=== PATIENT | male | born 1935 | race Hispanic/Latino ===

== ENCOUNTER 2018-04-08 20:20 | Emergency (ER) | payer MEDICARE, BC ==
[2018-04-08 20:34] VITALS: BMI 25.8
--- NOTE | 2018-04-08 21:20 | ED PDOC ---
Arrival/HPI <PolloHerberth - Last Filed: 04/08/18 21:48> <Bonnie Velez - Last Filed: 04/09/18 01:08> - General Chief Complaint: Abdominal Pain Time Seen by Provider: 04/08/18 20:35 - History of Present Illness Narrative History of Present Illness (Text): 82 year old with a past medical history of hypertension, BPH, GERD, nephrolithiasis, hyperlipidemia, dementia, and vertigo presents for LUQ pain underneath his ribs that started this morning after he fell on the sidewalk on his ribs. Patient reports he was running across the street and fell on the sidewalk. Patient reports pain is worse with deep inspiration. Patient took tylenol for the pain but did not have relief from symptoms. He subsequently went home and fell back on the floor, as well. He denies back pain. Though he denies any head trauma from either event, daughter is unsure if that is true because of his dementia. His daughter reported that the patient has been falling more often than usual and has fallen at least 4 times this month. (Bonnie Velez) Past Medical History - Provider Review Nursing Documentation Reviewed: Yes - Infectious Disease Hx of Infectious Diseases: None - Cardiac Hx Cardiac Disorders: Yes Hx Hypertension: Yes - Pulmonary Hx Respiratory Disorders: No - Neurological Hx Neurological Disorder: No Hx Paralysis: No - HEENT Hx HEENT Disorder: No - Renal Hx Renal Disorder: Yes Hx Kidney Stones: Yes - Endocrine/Metabolic Hx Endocrine Disorders: No - Hematological/Oncological Hx Blood Disorders: No - Integumentary Hx Dermatological Disorder: No - Musculoskeletal/Rheumatological Hx Musculoskeletal Disorders: No - Gastrointestinal Hx Gastrointestinal Disorders: Yes Hx Gastroesophageal Reflux: Yes - Genitourinary/Gynecological Hx Genitourinary Disorders: Yes Hx Prostate Problems: Yes - Psychiatric Hx Psychophysiologic Disorder: No Hx Substance Use: No - Surgical History Other/Comment: Prostate surgery with Dr Osborn 04/09/2016 - Anesthesia Hx Anesthesia: Yes Hx Anesthesia Reactions: No Hx Malignant Hyperthermia: No - Suicidal Assessment Feels Threatened In Home Enviroment: No <Bonnie Velez - Last Filed: 04/09/18 01:08> Family/Social History - Physician Review Nursing Documentation Reviewed: Yes Family/Social History: Unknown Family HX Smoking Status: Former Smoker Hx Alcohol Use: No Hx Substance Use: No <Bonnie Velez - Last Filed: 04/09/18 01:08> Allergies/Home Meds <Herberth Abad - Last Filed: 04/08/18 21:48> <Bonnie Velez - Last Filed: 04/09/18 01:08> Allergies/Adverse Reactions: Allergies codeine Adverse Reaction (Severe, Verified 04/08/18 20:34) DIZZINESS doxycycline Adverse Reaction (Severe, Verified 04/08/18 20:34) STOMACH PAIN indomethacin Adverse Reaction (Severe, Verified 04/08/18 20:34) STOMACH PAIN Penicillins Adverse Reaction (Severe, Verified 04/08/18 20:34) VOMITING Home Medications: Home Meds Medication Instructions Recorded Confirmed Oxybutynin Chloride [Oxybutynin] 10 mg PO DAILY 06/24/15 08/17/16 Tamsulosin [Flomax] 0.4 mg PO DAILY 08/05/15 08/17/16 Allopurinol [Zyloprim] 100 mg PO DAILY 01/25/16 08/17/16 Fenofibrate [Tricor] 145 mg PO DAILY 01/25/16 08/17/16 Folic Acid [Folic Acid] 1 mg PO DAILY 01/25/16 08/17/16 Pantoprazole [Protonix EC Tab] 40 mg PO DAILY 01/25/16 08/17/16 Aspirin [Ecotrin] 81 mg PO DAILY 03/30/16 08/17/16 amLODIPine [Norvasc] 5 mg PO QAM 03/30/16 08/17/16 Memantine HCl [Namenda Xr] 1 tab PO DAILY 08/17/16 08/17/16 Review of Systems - Physician Review All systems were reviewed & negative as marked: Yes - Review of Systems Constitutional: Normal Eyes: Normal ENT: Normal Respiratory: SOB (mild shortness of breath due to pain below his left sided ribs ) Cardiovascular: Normal Gastrointestinal: Abdominal Pain (LUQ pain) Genitourinary Male: Normal. absent: Dysuria, Frequency, Hematuria Musculoskeletal: Normal. absent: Back Pain Skin: Normal Neurological: Normal <Bonnie Velez - Last Filed: 04/09/18 01:08> Physical Exam <Herberth Abad - Last Filed: 04/08/18 21:48> Vital Signs Reviewed: Yes Temperature: Afebrile Blood Pressure: Hypertensive Pulse: Regular Respiratory Rate: Normal Appearance: Positive for: Well-Appearing Pain Distress: Mild Mental Status: Positive for: Alert and Oriented X 3 - Systems Exam Head: Present: Atraumatic, Normocephalic Pupils: Present: PERRL Extroacular Muscles: Present: EOMI Conjunctiva: Present: Normal Nose (External): Present: Atraumatic Respiratory/Chest: Present: Clear to Auscultation Cardiovascular: Present: Regular Rate and Rhythm, Normal S1, S2. No: Murmurs Abdomen: Present: Normal Bowel Sounds. No: Tenderness, Distention Back: Present: Normal Inspection. No: CVA Tenderness, Midline Tenderness, Paraspinal Tenderness Upper Extremity: Present: Normal Inspection, Normal ROM, NORMAL PULSES Lower Extremity: Present: Normal Inspection, NORMAL PULSES, Normal ROM Neurological: Present: GCS=15, CN II-XII Intact, Speech Normal, Motor Func Grossly Intact Skin: Present: Warm, Dry, Normal Color Psychiatric: Present: Alert, Oriented x 3 <Bonnie Velez - Last Filed: 04/09/18 01:08> Vital Signs Temp Pulse Resp BP Pulse Ox 04/08/18 20:34 98.6 F 69 17 146/82 96 Medical Decision Making <Herberth Abad - Last Filed: 04/08/18 21:48> - Lab Interpretations I have reviewed the lab results: Yes - RAD Interpretation Mold Technician: ED Physician, Radiologist <Bonnie Velez - Last Filed: 04/09/18 01:08> ED Course and Treatment: 04/08/18 21:48 Jeramy Anderson is an 82 year old male who presents to the emergency department with a complaint of left upper quadrant abdominal pain since this morning s/p a fall. In agreement with resident note which contains more details about the patient. Patient was seen and evaluated with resident. Came up with plan and treatment together. (Herberth Abad) Impression: 82 year old with a past medical history of hypertension, BPH, GERD, nephrolithiasis, hyperlipidemia, dementia, and vertigo presents for LUQ pain underneath his ribs that started this morning after he fell on the sidewalk on his ribs. Assessment: musculoskeletal pain Rule out splenic rupture Doubt pneumothorax Plan: CBC and CMP to evaluate for anemia and electrolyte imbalances. Chest X ray to rule out pneumothorax. Head CT to rule out head trauma and intracranial bleed. Abdominal CT with contrast to rule out splenic rupture or other abdominal pathology. 04/08/18 22:42 CBC, CMP unremarkable so can rule out anemia and electrolyte imbalances. 04/09/18 00:[address]: 3.6 cm diameter infrarenal fusiform abdominal aortic aneurysm. No acute intra-abdominal pathology or traumatic injury. Normal spleen. Head CT: No acute findings. Chest X ray: No acute findings. No acute abdominal or head CT findings. Patient has AAA. Patient is aware of this and this is being followed by PCP. Patient can be discharged with follow up with PCP. (Bonnie Velez) - Lab Interpretations Lab Results: 04/08/18 21:40 04/08/18 21:40 Lab Results 04/08/18 21:40: Sodium 142, Potassium 4.0, Chloride 105, Carbon Dioxide 23, Anion Gap 19, BUN 22 H, Creatinine 1.3, Est GFR ( Amer) > 60, Est GFR ( Non-Af Amer) 53, Random Glucose 100, Calcium 9.3, Total Bilirubin 0.9, AST 24, ALT 37, Alkaline Phosphatase 66, Total Protein 7.3, Albumin 4.3, Globulin 3.0, Albumin/Globulin Ratio 1.4 04/08/18 21:40: WBC 9.1, RBC 5.21, Hgb 14.5, Hct 42.1, MCV 80.8, MCH 27.8, MCHC 34.4, RDW 13.4, Plt Count 145, MPV 10.8, Gran % 61.5, Lymph % (Auto) 28.4, Routt % (Auto) 7.8 H, Eos % (Auto) 2.0, Baso % (Auto) 0.3, Gran # 5.60, Lymph # (Auto ) 2.6, Routt # (Auto) 0.7 H, Eos # (Auto) 0.2, Baso # (Auto) 0.03 - RAD Interpretation Radiology Orders: 04/08/18 20:56 ABD & PELVIS PO CONTRAST ONLY [CT] Stat 04/08/18 20:57 HEAD W/O CONTRAST [CT] Stat CHEST PORTABLE [RAD] Stat - Scribe Statement The provider has reviewed the documentation as recorded by the Scribe <Herberth Abad - Last Filed: 04/08/18 21:48> - PA / BOWLING BALL GRADER / Resident Statement EDWARDO has reviewed & agrees with the documentation as recorded. EDWARDO has examined the patient and agrees with the treatment plan. <Bonnie Velez - Last Filed: 04/09/18 01:08> - Scribe Statement Linsey [place] Provider Scribe Attestation: All medical record entries made by the Scribe were at my direction and personally dictated by me. I have reviewed the chart and agree that the record accurately reflects my personal performance of the history, physical exam, medical decision making, and the department course for this patient. I have also personally directed, reviewed, and agree with the discharge instructions and disposition. (PolloHerberth) Disposition/Present on Arrival <PolloHerberth murrell - Last Filed: 04/08/18 21:48> - Present on Arrival Any Indicators Present on Arrival: No History of DVT/PE: No History of Uncontrolled Diabetes: No Urinary Catheter: No History of Decub. Ulcer: No History Surgical Site Infection Following: None - Disposition Have Diagnosis and Disposition been Completed?: Yes Disposition Time: 01:02 Patient Plan: Discharge <YuegabiBonnie - Last Filed: 04/09/18 01:08> - Disposition Diagnosis: Fall Disposition: HOME/ ROUTINE Condition: STABLE Additional Instructions: JERAMY ANDERSON, thank you for letting us take care of you today. Your provider was Herberth Abad MD and Bonnie Velez DO and you were treated for left upper quadrant pain. The emergency medical care you received today was directed at your acute symptoms. Abdominal CT, Head CT, and Chest X ray did not find any acute findings. Abdominal aortic aneurysm was found on abdominal CT which you are following up with your PCP. Return to the Emergency Department if your symptoms worsen, do not improve, or if you have any other problems. Follow up with PCP, Dr. Gamez, for appointment regarding your visit at the Emergency Department. Bring any paperwork you were given at discharge with you along with any medications you are taking to your follow up visit. Our treatment cannot replace ongoing medical care by a primary care provider outside of the emergency department. Thank you for allowing the [facility] team to be part of your care today. Referrals: christina gamez [Other] - Follow up with primary Forms: [employer] (Greek)
[2018-04-08 22:23] LABS: BASO # 0.03 K/mm3 (0.0-2.0); BASO % 0.3 % (0.0-3.0); EOS # 0.2 (0.0-0.7); GRAN # 5.6 (1.4-6.5); GRAN % 61.5 % (50.0-68.0); HEMOGLOBIN 14.5 g/dL (14.0-18.0); LYMPH # 2.6 (1.2-3.4); LYMPH % 28.4 % (22.0-35.0); MEAN CELL VOLUME 80.8 fl (80.0-105.0); MEAN CORPUSCULAR HEMOGLOBIN 27.8 pg (25.0-35.0); MEAN CORPUSCULAR HGB CONC 34.4 g/dl (31.0-37.0); MEAN PLATELET VOLUME 10.8 fl (7.0-11.0); MONO # 0.7 (0.1-0.6); MONO % 7.8 % (1.0-6.0); RBC 5.21 10^6/uL (3.5-6.1); RED CELL DISTRIBUTION WIDTH 13.4 % (11.5-14.5); WHITE BLOOD COUNT 9.1 10^3/ul (4.5-11.0)
[2018-04-08 22:33] LABS: ALB/GLOB RATIO 1.4 (1.1-1.8); ALBUMIN 4.3 g/dL (3.0-4.8); ALT/SGPT 37 U/L (7-56); AST/SGOT 24 U/L (17-59); BLOOD UREA NITROGEN 22 mg/dL (7-21); CALCIUM 9.3 mg/dL (8.4-10.5); GFR AFRICAN-AMERICAN > 60; GFR NON-AFRICAN AMERICAN 53
[2018-04-09 01:26] VITALS: RESP 16
[2018-04-09 01:27] VITALS: BP 140/80; PULSE 69; O2SAT 97
[2018-04-09 01:29] VITALS: TEMP 98.1
--- NOTE | 2018-04-09 08:43 | CT ---
Date of service: 04/08/2018 PROCEDURE: CT HEAD WITHOUT CONTRAST. HISTORY: rule out trauma COMPARISON: 08/17/2016. TECHNIQUE: Axial computed tomography images were obtained through the head/brain without intravenous contrast. Coronal and sagittal reconstructed images. Radiation dose: Total exam DLP = 1030.17 mGy-cm. This CT exam was performed using one or more of the following dose reduction techniques: Automated exposure control, adjustment of the mA and/or kV according to patient size, and/or use of iterative reconstruction technique. FINDINGS: HEMORRHAGE: No intracranial hemorrhage. BRAIN: No mass effect or edema. Age related senescent changes. VENTRICLES: Unremarkable. No hydrocephalus. CALVARIUM: Unremarkable. PARANASAL SINUSES: Unremarkable as visualized. No significant inflammatory changes. MASTOID AIR CELLS: Unremarkable as visualized. No inflammatory changes. OTHER FINDINGS: None. IMPRESSION: No acute intracranial abnormalities. No significant findings to account for the clinical presentation. No significant interval change compared to the prior examination(s). Concordant results (preliminary interpretation) provided by [employer]. Procedure Completed: 23:44. Preliminary ([facility]) Report: Dictated and Authenticated: 00:32. Final Interpretation: 08:41. April 09, 2018.
--- NOTE | 2018-04-09 09:45 | RAD ---
Date of service: 04/08/2018 HISTORY: r/o infiltrate COMPARISON: 10/18/2015 FINDINGS: LUNGS: No active pulmonary disease. PLEURA: No significant pleural effusion identified, no pneumothorax apparent. CARDIOVASCULAR: Normal. OSSEOUS STRUCTURES: No significant abnormalities. VISUALIZED UPPER ABDOMEN: Normal. OTHER FINDINGS: None. IMPRESSION: No active disease.
--- NOTE | 2018-04-09 11:02 | CT ---
Date of service: 04/08/2018 PROCEDURE: CT Abdomen and Pelvis with contrast HISTORY: rule out splenic injury COMPARISON: None. TECHNIQUE: Oral contrast only. Radiation dose: Total exam DLP = 435.54 mGy-cm. This CT exam was performed using one or more of the following dose reduction techniques: Automated exposure control, adjustment of the mA and/or kV according to patient size, and/or use of iterative reconstruction technique. FINDINGS: LOWER THORAX: Unremarkable. LIVER: Unremarkable. No gross lesion or ductal dilatation. GALLBLADDER AND BILE DUCTS: Unremarkable. PANCREAS: Unremarkable. No gross lesion or ductal dilatation. SPLEEN: Unremarkable. ADRENALS: Unremarkable. No mass. KIDNEYS AND URETERS: Unremarkable. No hydronephrosis. No solid mass. VASCULATURE: Fusiform dilatation of the infrarenal abdominal aorta 3.8 x 3 cm. The aneurysm does not extend to the iliac arteries. BOWEL: Unremarkable. No obstruction. No gross mural thickening. APPENDIX: Normal appendix. PERITONEUM: Unremarkable. No free fluid. No free air. LYMPH NODES: Unremarkable. No enlarged lymph nodes. BLADDER: Unremarkable. REPRODUCTIVE: Unremarkable. BONES: No acute fracture. OTHER FINDINGS: None. IMPRESSION: No acute findings related to/accounting for the clinical presentation. Infrarenal abdominal aortic aneurysm maximum diameters 3 x 3.8 cm. Limitations of the current examination: Absence of intravenous contrast in the setting of trauma where splenic injury/ laceration is suspected Concordant results (preliminary interpretation) provided by [employer]. Procedure Completed: 23:41 Preliminary ([facility]) Report: Dictated and Authenticated: 00:43. Final Interpretation: 11:00. April 09, 2018.
== END 2018-04-09 01:25 | disposition home or self-care (01) ==
LOC: ED 20:20
DX: R10.12 Left upper quadrant pain (principal); W18.30XA Fall on same level, unspecified, initial encounter; Y93.02 Activity, running; Y92.480 Sidewalk as the place of occurrence of the external cause; E78.5 Hyperlipidemia, unspecified; I10 Essential (primary) hypertension; N40.0 Benign prostatic hyperplasia without lower urinary tract symptoms; F03.90 Unspecified dementia, unspecified severity, without behavioral disturbance, psychotic disturbance, mood disturbance, and anxiety; Z87.891 Personal history of nicotine dependence

== ENCOUNTER 2018-04-10 11:49 | Emergency (ER) | payer MEDICARE, BC ==
[2018-04-10] MEDS ORDERED: Oxycodone/Acetaminophen 5/325 mg Tab PO STA (12:37)
[2018-04-10 12:39] VITALS: BMI 27.6
--- NOTE | 2018-04-10 12:42 | ED PDOC ---
Arrival/HPI - General Chief Complaint: Back Pain Time Seen by Provider: 04/10/18 12:31 Historian: Patient - History of Present Illness Narrative History of Present Illness (Text): 04/10/18 12:38 An 82 year old male, whose past medical history includes hypertension, BPH, GERD , nephrolithiasis, hyperlipidemia, dementia, and vertigo, presents to the emergency room complaining of persistent left sided rib pain. Patient was seen on 04/08 s/p mechanical fall for which he had a Head CT, Abdomen/Pelvis CT, and Chest X-ray that were negative. Patient was discharged home. He presents today complaining of persistent pain. He notes that he has been taking Tylenol with no relief of his symptoms. The patient denies fevers, chills, headache, dizziness, sore throat, cough, shortness of breath, dyspnea on exertion, abdominal pain, nausea, vomiting, diarrhea, neck/back pain, urinary/bowel changes or any other complaint. PMD: Dr. Yesi Gamez ([facility]) Time/Duration: Other (2 Days) Symptom Onset: Sudden Symptom Course: Worsening Activities at Onset: Rest, Light Context: Home Past Medical History - Provider Review Nursing Documentation Reviewed: Yes - Infectious Disease Hx of Infectious Diseases: None - Cardiac Hx Cardiac Disorders: Yes Hx Hypertension: Yes - Pulmonary Hx Respiratory Disorders: No - Neurological Hx Neurological Disorder: No Hx Paralysis: No - HEENT Hx HEENT Disorder: No - Renal Hx Renal Disorder: Yes Hx Kidney Stones: Yes - Endocrine/Metabolic Hx Endocrine Disorders: No - Hematological/Oncological Hx Blood Disorders: No - Integumentary Hx Dermatological Disorder: No - Musculoskeletal/Rheumatological Hx Musculoskeletal Disorders: Yes Hx Falls: Yes - Gastrointestinal Hx Gastrointestinal Disorders: Yes Hx Gastroesophageal Reflux: Yes - Genitourinary/Gynecological Hx Genitourinary Disorders: Yes Hx Prostate Problems: Yes - Psychiatric Hx Psychophysiologic Disorder: No Hx Substance Use: No - Surgical History Other/Comment: Prostate surgery with Dr Osborn 04/09/2016 - Anesthesia Hx Anesthesia: Yes Hx Anesthesia Reactions: No Hx Malignant Hyperthermia: No - Suicidal Assessment Feels Threatened In Home Enviroment: No Family/Social History - Physician Review Nursing Documentation Reviewed: Yes Family/Social History: No Known Family HX Smoking Status: Former Smoker Hx Alcohol Use: No Hx Substance Use: No Allergies/Home Meds Allergies/Adverse Reactions: Allergies codeine Adverse Reaction (Severe, Verified 04/10/18 12:33) DIZZINESS doxycycline Adverse Reaction (Severe, Verified 04/10/18 12:33) STOMACH PAIN indomethacin Adverse Reaction (Severe, Verified 04/10/18 12:33) STOMACH PAIN Penicillins Adverse Reaction (Severe, Verified 04/10/18 12:33) VOMITING Home Medications: Home Meds Medication Instructions Recorded Confirmed Oxybutynin Chloride [Oxybutynin] 10 mg PO DAILY 06/24/15 04/10/18 Tamsulosin [Flomax] 0.4 mg PO DAILY 08/05/15 04/10/18 Allopurinol [Zyloprim] 100 mg PO DAILY 01/25/16 04/10/18 Fenofibrate [Tricor] 145 mg PO DAILY 01/25/16 04/10/18 Folic Acid [Folic Acid] 1 mg PO DAILY 01/25/16 04/10/18 Pantoprazole [Protonix EC Tab] 40 mg PO DAILY 01/25/16 04/10/18 Aspirin [Ecotrin] 81 mg PO DAILY 03/30/16 04/10/18 amLODIPine [Norvasc] 5 mg PO QAM 03/30/16 04/10/18 Memantine HCl [Namenda Xr] 1 tab PO DAILY 08/17/16 04/10/18 Review of Systems - Physician Review All systems were reviewed & negative as marked: Yes - Review of Systems Constitutional: absent: Fevers, Night Sweats Respiratory: absent: SOB, Cough Cardiovascular: absent: Chest Pain, WALKER Gastrointestinal: absent: Abdominal Pain, Stool Changes, Diarrhea, Nausea, Vomiting Genitourinary Male: absent: Urinary Output Changes Musculoskeletal: Other (Persistent left sided rib pain. ). absent: Back Pain, Neck Pain Neurological: absent: Headache, Dizziness Physical Exam Vital Signs Reviewed: Yes Vital Signs Temp Pulse Resp BP Pulse Ox 04/10/18 12:34 97.9 F 76 18 138/70 95 Temperature: Afebrile Blood Pressure: Normal Pulse: Regular Respiratory Rate: Normal Appearance: Positive for: Well-Appearing, Non-Toxic, Comfortable Pain Distress: None Mental Status: Positive for: Alert and Oriented X 3 - Systems Exam Head: Present: Atraumatic, Normocephalic Pupils: Present: PERRL Extroacular Muscles: Present: EOMI Conjunctiva: Present: Normal Mouth: Present: Moist Mucous Membranes Neck: Present: Normal Range of Motion Respiratory/Chest: Present: Clear to Auscultation, Good Air Exchange, Tender to Palpation (Left- sided rib tenderness. ). No: Respiratory Distress, Accessory Muscle Use Cardiovascular: Present: Regular Rate and Rhythm, Normal S1, S2. No: Murmurs Abdomen: No: Tenderness, Distention, Peritoneal Signs Back: Present: Normal Inspection Upper Extremity: Present: Normal Inspection. No: Cyanosis, Edema Lower Extremity: Present: Normal Inspection. No: Edema Neurological: Present: GCS=15, CN II-XII Intact, Speech Normal Skin: Present: Warm, Dry, Normal Color. No: Rashes Psychiatric: Present: Alert, Oriented x 3, Normal Insight, Normal Concentration Medical Decision Making ED Course and Treatment: 04/10/18 12:44 Impression: An 82 year old male presents to the emergency room complaining of persistent left sided rib pain s/p fall 2 days ago. Plan: -- Chest CT -- Percocet -- Reassess and disposition Prior Visits: Notes and results from previous visits were reviewed. On 04/08/18 patient was seen in the emergency room for left-sided pain s/p mechanical fall. Patient was discharged home. Progress Notes: PROCEDURE: CT Chest without contrast Dictator : Cayetano Iverson MD Report Date : 04/10/2018 13:37:07 IMPRESSION: No acute findings 04/10/18 13:43 On reevaluation the patient feels better and is in no acute distress. His son reports that patient is not taking pain medication. Paitent instructed on the importance of taking pain medication. Given incentive spirometer and instructed to follow-up with PMD. I have discussed the results and plan with the patient, who expresses understanding. Patient given the opportunity to ask question, all questions were answered and there is agreement with the plan to discharge the patient home. Patient is stable for discharge. Patient was instructed to follow up with physician/clinic in 1-2 days or return if symptoms persist/worsen or new concerning symptoms arise. 04/10/18 13:59 - RAD Interpretation Radiology Orders: 04/10/18 12:37 CHEST W/O CONTRAST [CT] Stat - Medication Orders Current Medication Orders: Discontinued Medications Oxycodone/Acetaminophen (Percocet 5/325 Mg Tab) 1 tab PO STAT STA Stop: 04/10/18 12:38 Last Admin: 04/10/18 13:03 Dose: 1 tab MAR Pain Assessment Document 04/10/18 13:03 SF (Rec: 04/10/18 13:03 [id number]) Pain Reassessment Is this a pain reassessment? Yes Sleep Is patient sleeping during reassessment? No Presence of Pain Presence of Pain Yes - Scribe Statement The provider has reviewed the documentation as recorded by the [place] Provider Scribe Attestation: All medical record entries made by the Scribe were at my direction and personally dictated by me. I have reviewed the chart and agree that the record accurately reflects my personal performance of the history, physical exam, medical decision making, and the department course for this patient. I have also personally directed, reviewed, and agree with the discharge instructions and disposition. Disposition/Present on Arrival - Present on Arrival Any Indicators Present on Arrival: No History of DVT/PE: No History of Uncontrolled Diabetes: No Urinary Catheter: No History of Decub. Ulcer: No History Surgical Site Infection Following: None - Disposition Have Diagnosis and Disposition been Completed?: Yes Diagnosis: Rib contusion Disposition: HOME/ ROUTINE Disposition Time: 13:43 Patient Plan: Discharge Patient Problems: Current Active Problems Problem Status Onset Rib contusion Acute Condition: GOOD Discharge Instructions (ExitCare): How to Use an Incentive Spirometer, Contusion (DC), Bruised Rib (DC) Additional Instructions: Take percocet for severe pain. Tylenol for moderate pain. Use incentive spirometer. Return to ED if condition worsens. Follow-up with PMD within 2 days Prescriptions: oxyCODONE/Acetaminophen [Percocet 5/325 mg Tab] 1 tab PO Q6 PRN #10 tab PRN Reason: Pain, Severe (8-10) Forms: [employer] (Polish)
--- NOTE | 2018-04-10 13:39 | CT ---
Date of service: 04/10/2018 PROCEDURE: CT Chest without contrast HISTORY: persistent L sided rib pain after fall COMPARISON: None. TECHNIQUE: Contiguous axial images were obtained through the chest without intravenous contrast enhancement. Sagittal and coronal reconstructions were performed. Radiation dose (DLP): 697 mGy-cm. This CT exam was performed using one or more of the following dose reduction techniques: Automated exposure control, adjustment of the mA and/or kV according to patient size, and/or use of iterative reconstruction technique. FINDINGS: LUNGS: Clear lungs. Visualized airway clear. MEDIASTINUM: Unremarkable thoracic aorta. No aneurysm. Normal sized heart. Main pulmonary artery unremarkable. No vascular congestion. No lymphadenopathy. PLEURA: No pleural fluid. No pneumothorax. BONES: No fracture. No destructive lesion. UPPER ABDOMEN: Grossly unremarkable. OTHER FINDINGS: None. IMPRESSION: No acute findings
[2018-04-10 14:27] VITALS: BP 135/87; PULSE 74; RESP 17; TEMP 98.1; O2SAT 95
== END 2018-04-10 14:00 | disposition home or self-care (01) ==
LOC: ED 11:49
DX: S20.212D Contusion of left front wall of thorax, subsequent encounter (principal); W18.30XD Fall on same level, unspecified, subsequent encounter